=== PATIENT | female | born 1975 | race Caucasian/White ===

== ENCOUNTER 2017-01-03 09:48 | Emergency (ER) | payer MEDICARE, MEDICAID ==
[~2017-01-03] VITALS: Ht 162.6 cm; Wt 67.0 kg
[~2017-01-03 09:48] MED LIST: ALLI60 MG PO; BACTRIM DS1 TAB PO; FIORICE1 PO; LEVOTHYROXIN75 MC1 PO; LORTAB 5/3255 MG PO; MULTIVITAMI1 OR; NIACIN SR500 M1 PO; NO; PRILOSEC20 MG/CAP PO; PRILOSEC40 MG PO; SOMA350 MG PO; STERAPRED DS10 MG PO; TYLENOL # 31 TA1 PO; ULTRAM50 MG OR; [UNRECOGNIZED DRUG - REMARK]; [UNRECOGNIZED DRUG - REMARK]
[2017-01-03] MEDS ORDERED: ALL DAY ALLG10 MG PO (10:28)
[2017-01-03] MEDS ORDERED: BUT/APAP/CAF PO (10:29)
[2017-01-03] MEDS ORDERED: BACTRIM DS1 TAB PO (11:31)
[2017-01-03] MEDS ORDERED: MEDDOSEPAK PO (11:31)
[2017-01-03] MEDS ORDERED: PATANOL0.1 % OU (11:31)
[2017-01-03 12:00] VITALS: BP 126/85
== END 2017-01-03 12:00 | disposition home or self-care (01) ==
LOC: ED 09:48
DX: J32.9 Chronic sinusitis, unspecified (principal); I88.9 Nonspecific lymphadenitis, unspecified; J30.9 Allergic rhinitis, unspecified; H10.13 Acute atopic conjunctivitis, bilateral; F17.210 Nicotine dependence, cigarettes, uncomplicated; R09.81 Nasal congestion